=== PATIENT | male | born 1945 | race Caucasian/White ===

== ENCOUNTER 2018-01-05 09:39 | Outpatient (CLI) | payer OTHER | END 2018-01-05 15:50 | disposition home or self-care (01) | LOC: MRI 09:39 | DX: M75.02 Adhesive capsulitis of left shoulder (principal) | CPT/HCPCS: 73221 ==

== ENCOUNTER 2019-09-11 11:23 | Outpatient (CLI) | payer OTHER | END 2019-09-11 11:36 | disposition home or self-care (01) | LOC: RAD 11:23 | DX: I11.9 Hypertensive heart disease without heart failure (principal); R06.02 Shortness of breath ==

== ENCOUNTER 2022-06-15 12:59 | Outpatient (CLI) | payer OTHER | END 2022-06-15 13:08 | disposition home or self-care (01) | LOC: TOM 12:59 | DX: Z86.73 Personal history of transient ischemic attack (TIA), and cerebral infarction without residual deficits (principal) ==

== ENCOUNTER 2022-09-15 08:21 | Outpatient (CLI) | payer OTHER | END 2022-09-15 08:32 | disposition home or self-care (01) | LOC: TOM 08:21 | DX: I65.23 Occlusion and stenosis of bilateral carotid arteries (principal) | CPT/HCPCS: 70498; Q9965 ==

== ENCOUNTER 2022-12-02 08:15 | Outpatient (CLI) | payer OTHER | END 2022-12-02 08:24 | disposition home or self-care (01) | LOC: SONOGRAMA 08:15 | PROVIDERS: ATTEND General Practice | DX: I71.40 Abdominal aortic aneurysm, without rupture, unspecified (principal); F17.210 Nicotine dependence, cigarettes, uncomplicated; Z12.2 Encounter for screening for malignant neoplasm of respiratory organs ==

== ENCOUNTER 2023-10-15 07:38 | Outpatient (CLI) | payer OTHER | END 2023-10-15 07:47 | disposition home or self-care (01) | LOC: TOM 07:38 | DX: K74.60 Unspecified cirrhosis of liver (principal) | CPT/HCPCS: 74160; Q9965 ==

== ENCOUNTER 2023-10-15 08:58 | Outpatient (CLI) | payer OTHER ==
[2023-10-15 11:00] LABS: ABG PH 7.415 (7.35-7.45); ABG PO2 81.1 mmHg (80-100)
[2023-10-15 11:01] LABS: BASE EXCESS -2.4 mmol/l; BICARBONATE 21.3 mmol/l (23-25); Tco2 22.4 mmol/l
[2023-10-15 11:02] LABS: allen test SATISFACTORY; o2 21 %; puncture site RADIAL LEFT
== END 2023-10-15 13:48 | disposition home or self-care (01) ==
LOC: LAB 08:58 → T RESPIRAT 08:58
DX: K74.60 Unspecified cirrhosis of liver (principal)

== ENCOUNTER 2025-01-23 14:42 | Outpatient (CLI) | payer OTHER ==
[2025-01-23 15:39] LABS: CREATININE SERUM 0.92 mg/dL (0.70-1.30); GFR 79.57
== END 2025-01-23 14:47 | disposition home or self-care (01) ==
LOC: LAB 14:42
PROVIDERS: ATTEND Radiology Diagnostic Radiology
DX: I77.9 Disorder of arteries and arterioles, unspecified (principal)

== ENCOUNTER 2025-01-26 10:14 | Outpatient (CLI) | payer OTHER | END 2025-01-26 10:20 | disposition home or self-care (01) | LOC: TOM 10:14 | PROVIDERS: ATTEND General Practice | DX: I77.9 Disorder of arteries and arterioles, unspecified (principal) | CPT/HCPCS: 70498; Q9965 ==

== ENCOUNTER 2025-06-18 13:41 | Outpatient (CLI) | payer OTHER | END 2025-06-18 13:47 | disposition home or self-care (01) | LOC: MRI 13:41 | PROVIDERS: ATTEND Neurological Surgery | DX: I63.9 Cerebral infarction, unspecified (principal) | CPT/HCPCS: 70544; 70553; Q9965; 70552 ==

== ENCOUNTER 2025-06-19 09:49 | Outpatient (CLI) | payer OTHER | END 2025-06-19 09:54 | disposition home or self-care (01) | LOC: SONOGRAMA 09:49 | DX: D69.6 Thrombocytopenia, unspecified (principal); D78.11 Accidental puncture and laceration of the spleen during a procedure on the spleen; K70.9 Alcoholic liver disease, unspecified ==